=== PATIENT | male | born 1955 | race Caucasian/White ===

== ENCOUNTER 2017-04-05 11:26 | Emergency (ER) | payer BC ==
[~2017-04-05] VITALS: Ht 180.3 cm; Wt 88.6 kg
[2017-04-05 11:28] VITALS: TEMP 98.2
[2017-04-05] MEDS ORDERED: FOSAMAX 70MG TA70 MG PO (11:59)
[2017-04-05] MEDS ORDERED: MULTI VITAMINS1 TAB PO (12:00)
[2017-04-05] MEDS ORDERED: MASON NATURAL2000 IU PO (12:01)
[2017-04-05] MEDS ORDERED: VITAMIN B12 781 TAB PO (12:02)
[2017-04-05] MEDS ORDERED: OSCAL 500 TAB500 MG PO (12:02)
[2017-04-05 12:06] LABS: COLLECTION METHOD CLEAN CATCH
[2017-04-05 12:10] LABS: BASO % 0.5 % (0.0-2.0); EOS % 0.3 % (0-4.0); GRAN # 4.2 (1.4-6.5); HEMATOCRIT 44.2 % (42.0-52.0); HEMOGLOBIN 14.3 g/dl (13.5-18.0); LYMPH # 1.4 (1.2-3.4); LYMPH % 21.4 % (20.0-51.0); MEAN CELL VOLUME 94 fl (80.0-100.0); MEAN CORPUSCULAR HEMOGLOBIN 31 pg (27.0-31.0); MEAN CORPUSCULAR HGB CONC 32 g/dl (33.0-37.0); MEAN PLATELET VOLUME 9.6 fl (7.4-10.4); MONO # 0.7 (0.1-0.6); MONO % 11.6 % (1.7-9.3); PLATELET COUNT 247 K/mm3 (130-400); RED BLOOD COUNT 4.69 M/mm3 (4.20-5.60); WHITE BLOOD COUNT 6.4 K/mm3 (4.8-10.8)
[2017-04-05 12:12] LABS: ADJUSTED CALCIUM 8.9 mg/dL (8.4-10.2); ALBUMIN 4.4 gm/dL (3.5-5.0); BILIRUBIN,TOTAL 0.5 mg/dL (0.0-1.0); C-REACTIVE PROTEIN 1.1 mg/dL (0.0-0.9); CALCIUM 9.2 mg/dL (8.4-10.2); CREATININE, serum 1.03 mg/dL (0.66-1.25); TOTAL PROTEIN 7.4 gm/dL (6.4-8.2)
[2017-04-05 12:15] LABS: MUCOUS Present /lpf; PH 5 (5-8); SQUAMOUS EPITHELIAL 0-2 /hpf; URINE APPEARANCE Clear; URINE BACTERIA None Seen /hpf; URINE BILIRUBIN Negative (NEGATIVE); URINE BLOOD Negative (NEGATIVE); URINE COLOR Yellow; URINE GLUCOSE Negative (NEGATIVE); URINE KETONE Negative (NEGATIVE); URINE LEUKOCYTE ESTERASE Negative (NEGATIVE); URINE PROTEIN(semi-quant) Negative (NEGATIVE); URINE RBC 0-2 /hpf; URINE UROBILINOGEN Negative (NEGATIVE); URINE WBC 0-2 /hpf
[2017-04-05] MEDS ORDERED: NORCO 325 MG-51 TAB PO (12:42)
[2017-04-05 12:55] VITALS: BP 139/86; PULSE 88
== END 2017-04-05 12:55 | disposition home or self-care (01) ==
LOC: COL.ER 11:26
PROVIDERS: Family Medicine
DX: R10.9 Unspecified abdominal pain (principal); G62.9 Polyneuropathy, unspecified
CPT/HCPCS: J1885; J2405; J7030